=== PATIENT | male | born 1995 | race Caucasian/White ===

== ENCOUNTER 2021-04-02 21:00 | Emergency (ER) | payer BC ==
[~2021-04-02] VITALS: Ht 180.3 cm; Wt 93.2 kg
[~2021-04-02 21:00] MED LIST: ALBU6.7H9 INH; CYCL-1 PO; MECL-159 PO
[2021-04-02 21:05] VITALS: BP 139/94
[2021-04-02] MEDS ORDERED: BENZ-38 PO (22:47)
[2021-04-02] MEDS ORDERED: GUAI400T92 PO (22:47)
[2021-04-02] MEDS ORDERED: guaiFENesin ER 600mg tablet PO ONE (22:50)
== END 2021-04-02 23:29 | disposition home or self-care (01) ==
LOC: ER 21:01
DX: U07.1 COVID-19 (principal); R05.9 Cough, unspecified; R09.89 Other specified symptoms and signs involving the circulatory and respiratory systems; Z79.899 Other long term (current) drug therapy
CPT/HCPCS: 71045; 87635; 99284; C9803

== ENCOUNTER 2022-02-02 19:35 | Emergency (ER) | payer BC, OTHER ==
[~2022-02-02] VITALS: Ht 177.8 cm; Wt 98.0 kg
[~2022-02-02 19:35] MED LIST changes: +ALBU6.7H14 INH; -ALBU6.7H9 INH; +GUAI400T92 PO
[2022-02-02] MEDS ORDERED: acetaminophen 325mg tablet PO ONE (21:05)
[2022-02-02] MEDS ORDERED: ketorolac tromethamine 15mg/ml inj. IM ONE (21:05)
[2022-02-02 22:24] VITALS: BP 138/76
== END 2022-02-02 22:25 | disposition home or self-care (01) ==
LOC: ER 19:36
DX: M25.511 Pain in right shoulder (principal); Z88.1 Allergy status to other antibiotic agents; Z88.5 Allergy status to narcotic agent; Z79.899 Other long term (current) drug therapy
CPT/HCPCS: 73030; 96372; 99284; J1885